=== PATIENT | male | born 1935 | race Caucasian/White ===

== ENCOUNTER 2018-04-02 08:23 | Inpatient (IN) ==
[2018-04-02] MEDS ORDERED: ONDANSETRON 4 MG/2 ML VIAL IV STA (09:58)
[2018-04-02] MEDS ORDERED: ASPIRIN 325 MG TABLET PO STA (09:58)
[2018-04-02 10:10] LABS: Basophils % 0.4 % (0.0-0.8); Eosinophils # 0.2 10*3/uL (0.0-0.87); Eosinophils % 2.5 % (0.00-10.9); Hematocrit 18.6 VOL% (42.0-52.0); Immature Granulocytes % 0.3 %; Immature Granulocytes Absolute 0.02 #; Lymphocytes # 1.5 10*3/uL (1.4-4.0); Lymphocytes % 21.8 % (21.2-54.2); Mean Corpuscular HGB Conc 30.1 GM/DL (32-36); Mean Corpuscular Hemoglobin 32 PG (27-34); Mean Corpuscular Volume 105.7 FL (87-102); Mean Platelet Volume 9.9 FL (9.6-12.0); Monocytes # 0.6 10*3/uL (0.11-0.8); Monocytes % 8.4 % (1.7-12.7); Neutrophils # 4.5 10*3/uL (1.4-7.4); Neutrophils % 66.6 % (38.7-73.9); Platelet Count 183 T/CUMM (130-400); Red Blood Count 1.76 MC/CUMM (3.8-5.5); Red Cell Distribution Width 16.2 % (9.3-17.3); White Blood Count 6.8 T/CUMM (4-12)
[2018-04-02 10:11] LABS: Partial Thromboplastin Time 34.2 SECS (0-40)
[2018-04-02 10:14] LABS: Hemoglobin 5.6 GM/DL (14.0-18.0)
[2018-04-02 10:17] LABS: PT Patient Result 53.1 SECS
[2018-04-02 10:28] LABS: Alanine Aminotransferase 17 U/L (16-61); Albumin 2.7 G/DL (3.4-5.0); Alkaline Phosphatase 78 U/L (45-117); Aspartate Amino Transferase 22 U/L (0-37); Blood Urea Nitrogen 37 MG/DL (7-18); Calcium 8.4 MG/DL (8.5-10.1); Glucose 117 MG/DL (74-106); Osmolality,Calculated 292.1 MOS/KG (273-304); Potassium 4.2 MMOL/L (3.5-5.1); Sodium 142 MMOL/L (136-145)
[2018-04-02 10:29] LABS: Troponin I 0.145 NG/ML (0.00-0.045)
[2018-04-02] MEDS ORDERED: MEPERIDINE 25 MG/1 ML VIAL ONE (10:51)
[2018-04-02] MEDS ORDERED: ACETAMINOPHEN 325 MG TABLET PO PRN (11:05)
[2018-04-02] MEDS ORDERED: DEXTROSE 50% 25 GM/50 ML VIAL IV PRN (11:05)
[2018-04-02] MEDS ORDERED: SODIUM CHLORIDE 0.9% 1,000 ML IV PRN ×2 (11:05→19:59)
[2018-04-02] MEDS ORDERED: ONDANSETRON 4 MG/2 ML VIAL IV PRN (11:05)
[2018-04-02] MEDS ORDERED: GLUCAGON 1 MG VIAL IM PRN (11:05)
[2018-04-02] MEDS ORDERED: MORPHINE 4 MG/1 ML VIAL IV PRN (11:05)
[2018-04-02] MEDS ORDERED: MEPERIDINE 25 MG/1 ML VIAL IV STA (11:37)
[2018-04-02 11:51] LABS: Basophils % 0.6 % (0.0-0.8); Eosinophils # 0.2 10*3/uL (0.0-0.87); Eosinophils % 2.2 % (0.00-10.9); Hematocrit 19.1 VOL% (42.0-52.0); Immature Granulocytes % 0.4 %; Immature Granulocytes Absolute 0.03 #; Lymphocytes # 1.5 10*3/uL (1.4-4.0); Lymphocytes % 21.7 % (21.2-54.2); Mean Corpuscular HGB Conc 30.4 GM/DL (32-36); Mean Corpuscular Hemoglobin 32 PG (27-34); Mean Corpuscular Volume 106.1 FL (87-102); Mean Platelet Volume 9.5 FL (9.6-12.0); Monocytes # 0.7 10*3/uL (0.11-0.8); Monocytes % 9.6 % (1.7-12.7); Neutrophils # 4.5 10*3/uL (1.4-7.4); Neutrophils % 65.5 % (38.7-73.9); Platelet Count 197 T/CUMM (130-400); Red Cell Distribution Width 16.4 % (9.3-17.3); White Blood Count 6.9 T/CUMM (4-12)
[2018-04-02 11:56] LABS: Hemoglobin 5.8 GM/DL (14.0-18.0)
[2018-04-02] MEDS: INSULIN REGULAR 100 UNIT/ML SUBCUT SCH ×3 (13:53→23:10)
[2018-04-02] MEDS: FUROSEMIDE 20 MG/2 ML VIAL IV PRN (15:23)
[2018-04-02 15:35] LABS: Apearance,Urine CLEAR (Clear); Bilirubin,Urine Negative (Negative); Blood, Urine Negative (Negative); Glucose,Urine (UA) Negative (Negative); Ketones,Urine Negative (Negative); Mucus,Urine Occasional /LPF (Occasional); Nitrite,Urine Negative (Negative); Protein,Urine Negative; RBC,Urine 1 /HPF (0-4); Squamous Epithelial Cell,Urine Occasional /HPF (0-10); Urine Color Yellow (Yellow); WBC,Urine 1 /HPF (0-6)
[2018-04-02] MEDS: FUROSEMIDE 40 MG TABLET PO SCH (15:57)
[2018-04-02] MEDS: SODIUM CHLORIDE 0.9% 1,000 ML IV SCH (16:03)
[2018-04-02 19:49] LABS: Hematocrit 21.3 VOL% (42.0-52.0); Hemoglobin 6.6 GM/DL (14.0-18.0)
[2018-04-02] MEDS: NIACIN ER 500 MG TABLET PO SCH (20:26)
[2018-04-02] MEDS: SIMVASTATIN 40 MG TABLET PO SCH (20:26)
[2018-04-02] MEDS: DOCUSATE SODIUM 100 MG CAPSULE PO SCH (20:26)
[2018-04-02] MEDS ORDERED: SKIN HEALING OINT (AQUAPHOR) 50 GM TUBE TOP SCH (20:30)
[2018-04-02 21:00] LABS: Troponin I 0.168 NG/ML (0.00-0.045)
[2018-04-03] MEDS: FUROSEMIDE 20 MG/2 ML VIAL IV PRN (01:27)
[2018-04-03] MEDS: SODIUM CHLORIDE 0.9% 1,000 ML IV SCH ×2 (01:44→18:22)
[2018-04-03] MEDS: INSULIN REGULAR 100 UNIT/ML SUBCUT SCH ×4 (05:36→23:03)
[2018-04-03 07:31] LABS: Basophils # 0.1 10*3/uL (0.0-0.2); Basophils % 0.7 % (0.0-0.8); Eosinophils # 0.2 10*3/uL (0.0-0.87); Eosinophils % 2.3 % (0.00-10.9); Hemoglobin 7.5 GM/DL (14.0-18.0); Immature Granulocytes % 0.4 %; Immature Granulocytes Absolute 0.03 #; Lymphocytes # 1.3 10*3/uL (1.4-4.0); Lymphocytes % 18.6 % (21.2-54.2); Mean Corpuscular HGB Conc 31.3 GM/DL (32-36); Mean Corpuscular Hemoglobin 31 PG (27-34); Mean Corpuscular Volume 100.4 FL (87-102); Mean Platelet Volume 9.6 FL (9.6-12.0); Monocytes # 0.7 10*3/uL (0.11-0.8); Neutrophils # 4.8 10*3/uL (1.4-7.4); Platelet Count 172 T/CUMM (130-400); Red Blood Count 2.39 MC/CUMM (3.8-5.5); Red Cell Distribution Width 16.7 % (9.3-17.3); White Blood Count 7.1 T/CUMM (4-12)
[2018-04-03 08:10] LABS: Albumin 2.5 G/DL (3.4-5.0); Bilirubin,Total 0.6 MG/DL (0.2-1.0); Calcium 7.9 MG/DL (8.5-10.1); Osmolality,Calculated 293.1 MOS/KG (273-304); Potassium 3.7 MMOL/L (3.5-5.1); Risk Ratio 2.18; Total Protein 5.4 G/DL (6.4-8.3); VLDL CHOLESTEROL 13.6 MG/DL
[2018-04-03] MEDS: POTASSIUM CHLORIDE 20 MEQ TABLET PO SCH (08:31)
[2018-04-03] MEDS: DOCUSATE SODIUM 100 MG CAPSULE PO SCH ×2 (08:31→20:09)
[2018-04-03] MEDS: PANTOPRAZOLE 40 MG VIAL IV SCH (08:31)
[2018-04-03] MEDS: FERROUS SULFATE 325 MG TABLET PO SCH (08:31)
[2018-04-03] MEDS: FUROSEMIDE 40 MG TABLET PO SCH ×2 (08:31→17:01)
[2018-04-03] MEDS: METOPROLOL SUCCINATE XL 100 MG TABLET PO SCH (08:32)
[2018-04-03] MEDS: ASPIRIN EC 81 MG TABLET PO SCH (08:32)
[2018-04-03 08:53] LABS: INR 1.1; PT Patient Result 12.4 SECS
[2018-04-03] MEDS ORDERED: TERAZOSIN 10 MG CAPSULE PO SCH (09:00)
[2018-04-03] MEDS ORDERED: LOSARTAN 50 MG TABLET PO SCH (09:00)
[2018-04-03] MEDS ORDERED: FUROSEMIDE 40 MG/4 ML VIAL IV ONE (10:00)
[2018-04-03] MEDS ORDERED: FUROSEMIDE 40 MG/4 ML VIAL ONE (17:24)
[2018-04-03] MEDS: POTASSIUM CHLORIDE 20 MEQ TABLET PO PRN (20:10)
[2018-04-03] MEDS: SIMVASTATIN 40 MG TABLET PO SCH (20:10)
[2018-04-03] MEDS: NIACIN ER 500 MG TABLET PO SCH (20:10)
[2018-04-03 22:20] LABS: Hematocrit 26.7 VOL% (42.0-52.0); Hemoglobin 8.5 GM/DL (14.0-18.0)
[2018-04-04] MEDS: INSULIN REGULAR 100 UNIT/ML SUBCUT SCH ×3 (05:30→17:39)
[2018-04-04 05:36] LABS: Basophils % 0.5 % (0.0-0.8); Eosinophils # 0.2 10*3/uL (0.0-0.87); Eosinophils % 2.6 % (0.00-10.9); Hematocrit 26.2 VOL% (42.0-52.0); Hemoglobin 8.2 GM/DL (14.0-18.0); Immature Granulocytes % 0.4 %; Immature Granulocytes Absolute 0.03 #; Lymphocytes # 1.3 10*3/uL (1.4-4.0); Lymphocytes % 17.8 % (21.2-54.2); Mean Corpuscular HGB Conc 31.3 GM/DL (32-36); Mean Corpuscular Hemoglobin 31 PG (27-34); Mean Corpuscular Volume 98.1 FL (87-102); Mean Platelet Volume 9.6 FL (9.6-12.0); Monocytes # 0.7 10*3/uL (0.11-0.8); Monocytes % 9.4 % (1.7-12.7); Neutrophils # 5.1 10*3/uL (1.4-7.4); Neutrophils % 69.3 % (38.7-73.9); Platelet Count 175 T/CUMM (130-400); Red Blood Count 2.67 MC/CUMM (3.8-5.5); Red Cell Distribution Width 17.6 % (9.3-17.3); White Blood Count 7.4 T/CUMM (4-12)
[2018-04-04 06:11] LABS: Albumin 2.3 G/DL (3.4-5.0); Bilirubin,Total 1.3 MG/DL (0.2-1.0); Osmolality,Calculated 294.1 MOS/KG (273-304); Potassium 3.9 MMOL/L (3.5-5.1); Total Protein 5.1 G/DL (6.4-8.3)
[2018-04-04] MEDS: POTASSIUM CHLORIDE 20 MEQ TABLET PO PRN (06:24)
[2018-04-04] MEDS: FUROSEMIDE 40 MG TABLET PO SCH ×2 (09:05→16:29)
[2018-04-04] MEDS: POTASSIUM CHLORIDE 20 MEQ TABLET PO SCH (09:05)
[2018-04-04] MEDS: ASPIRIN EC 81 MG TABLET PO SCH (09:05)
[2018-04-04] MEDS: METOPROLOL SUCCINATE XL 100 MG TABLET PO SCH (09:06)
[2018-04-04] MEDS: DOCUSATE SODIUM 100 MG CAPSULE PO SCH ×2 (09:06→20:18)
[2018-04-04] MEDS: PANTOPRAZOLE 40 MG VIAL IV SCH (09:06)
[2018-04-04] MEDS: FERROUS SULFATE 325 MG TABLET PO SCH (09:06)
[2018-04-04] MEDS: SODIUM CHLORIDE 0.9% 1,000 ML IV SCH (11:31)
[2018-04-04] MEDS ORDERED: POLYETHYLENE GLYCOL POWDER 17 GM PACK PO PRN (13:13)
[2018-04-04] MEDS ORDERED: SODIUM PHOSPHATE ENEMA 133 ML BOTTLE RECTAL ONE (15:18)
[2018-04-04 16:03] LABS: Hematocrit 27.2 VOL% (42.0-52.0); Hemoglobin 8.4 GM/DL (14.0-18.0)
[2018-04-04] MEDS ORDERED: SODIUM CHLORIDE 0.9% 1,000 ML IV PRN (18:32)
[2018-04-04 19:41] LABS: Troponin I 0.173 NG/ML (0.00-0.045)
[2018-04-04] MEDS: NIACIN ER 500 MG TABLET PO SCH (20:18)
[2018-04-04] MEDS: SIMVASTATIN 40 MG TABLET PO SCH (20:19)
[2018-04-05] MEDS: INSULIN REGULAR 100 UNIT/ML SUBCUT SCH ×5 (00:33→23:17)
[2018-04-05 06:30] LABS: Basophils % 0.5 % (0.0-0.8); Eosinophils # 0.3 10*3/uL (0.0-0.87); Eosinophils % 3.2 % (0.00-10.9); Hematocrit 25.4 VOL% (42.0-52.0); Hemoglobin 7.8 GM/DL (14.0-18.0); Immature Granulocytes % 0.4 %; Immature Granulocytes Absolute 0.03 #; Lymphocytes # 1.3 10*3/uL (1.4-4.0); Lymphocytes % 15.7 % (21.2-54.2); Mean Corpuscular HGB Conc 30.7 GM/DL (32-36); Mean Corpuscular Hemoglobin 30 PG (27-34); Mean Corpuscular Volume 98.8 FL (87-102); Mean Platelet Volume 9.7 FL (9.6-12.0); Monocytes # 0.8 10*3/uL (0.11-0.8); Monocytes % 10.1 % (1.7-12.7); Neutrophils # 5.8 10*3/uL (1.4-7.4); Neutrophils % 70.1 % (38.7-73.9); Platelet Count 174 T/CUMM (130-400); Red Blood Count 2.57 MC/CUMM (3.8-5.5); White Blood Count 8.2 T/CUMM (4-12)
[2018-04-05 06:56] LABS: Albumin 2.1 G/DL (3.4-5.0); Bilirubin,Total 1.3 MG/DL (0.2-1.0); Calcium 8.2 MG/DL (8.5-10.1); Osmolality,Calculated 299.6 MOS/KG (273-304); Potassium 3.9 MMOL/L (3.5-5.1)
[2018-04-05 07:03] LABS: Troponin I 0.182 NG/ML (0.00-0.045)
[2018-04-05] MEDS ORDERED: SODIUM CHLORIDE 0.9% 1,000 ML IV PRN (08:52)
[2018-04-05] MEDS: PANTOPRAZOLE 40 MG VIAL IV SCH (09:52)
[2018-04-05] MEDS ORDERED: ETOMIDATE 20 MG/10 ML VIAL IV ONE (10:00)
[2018-04-05] MEDS ORDERED: PROPOFOL 200 MG/20 ML VIAL IV ONE (10:00)
[2018-04-05] MEDS ORDERED: LIDOCAINE 2% 5 ML VIAL ONE (10:00)
[2018-04-05] MEDS: FUROSEMIDE 40 MG TABLET PO SCH ×2 (12:48→16:03)
[2018-04-05 15:29] LABS: Hematocrit 25.7 VOL% (42.0-52.0); Hemoglobin 8.1 GM/DL (14.0-18.0)
[2018-04-05] MEDS ORDERED: BISACODYL 5 MG TABLET PO ONE (16:00)
[2018-04-05 16:01] LABS: Troponin I 0.142 NG/ML (0.00-0.045)
[2018-04-05] MEDS: POTASSIUM CHLORIDE 20 MEQ TABLET PO SCH (16:03)
[2018-04-05] MEDS: FERROUS SULFATE 325 MG TABLET PO SCH (16:03)
[2018-04-05] MEDS: ASPIRIN EC 81 MG TABLET PO SCH (16:03)
[2018-04-05] MEDS: METOPROLOL SUCCINATE XL 100 MG TABLET PO SCH (16:03)
[2018-04-05] MEDS: CLOTRIMAZOLE 1% CREAM 15 GM TUBE TOP SCH (16:04)
[2018-04-05] MEDS: DOCUSATE SODIUM 100 MG CAPSULE PO SCH (16:05)
[2018-04-05] MEDS ORDERED: POLYETHYLENE GLYCOL POWDER 255 GM BOTTLE PO ONE (18:00)
[2018-04-05] MEDS: NIACIN ER 500 MG TABLET PO SCH (20:00)
[2018-04-05] MEDS: SIMVASTATIN 40 MG TABLET PO SCH (20:00)
[2018-04-06 05:37] LABS: Basophils % 0.5 % (0.0-0.8); Eosinophils # 0.4 10*3/uL (0.0-0.87); Eosinophils % 4.8 % (0.00-10.9); Hematocrit 23.4 VOL% (42.0-52.0); Hemoglobin 7.1 GM/DL (14.0-18.0); Immature Granulocytes % 0.3 %; Immature Granulocytes Absolute 0.02 #; Lymphocytes # 1.3 10*3/uL (1.4-4.0); Mean Corpuscular HGB Conc 30.3 GM/DL (32-36); Mean Corpuscular Hemoglobin 30 PG (27-34); Mean Platelet Volume 9.2 FL (9.6-12.0); Monocytes # 0.7 10*3/uL (0.11-0.8); Monocytes % 8.8 % (1.7-12.7); Neutrophils % 67.6 % (38.7-73.9); Platelet Count 191 T/CUMM (130-400); Red Blood Count 2.34 MC/CUMM (3.8-5.5); Red Cell Distribution Width 18.1 % (9.3-17.3); White Blood Count 7.4 T/CUMM (4-12)
[2018-04-06 05:56] LABS: Albumin 2.3 G/DL (3.4-5.0); Bilirubin,Total 1.3 MG/DL (0.2-1.0); Calcium 7.9 MG/DL (8.5-10.1); Osmolality,Calculated 293.7 MOS/KG (273-304); Potassium 3.8 MMOL/L (3.5-5.1); Total Protein 4.9 G/DL (6.4-8.3)
[2018-04-06] MEDS: INSULIN REGULAR 100 UNIT/ML SUBCUT SCH ×3 (05:58→18:48)
[2018-04-06] MEDS ORDERED: MAGNESIUM CITRATE 300 ML BOTTLE PO ONE (06:00)
[2018-04-06] MEDS: PANTOPRAZOLE 40 MG VIAL IV SCH (09:02)
[2018-04-06] MEDS: CLOTRIMAZOLE 1% CREAM 15 GM TUBE TOP SCH (09:15)
[2018-04-06] MEDS: FUROSEMIDE 40 MG TABLET PO SCH ×2 (10:10→18:48)
[2018-04-06] MEDS ORDERED: ETOMIDATE 20 MG/10 ML VIAL IV ONE (12:30)
[2018-04-06] MEDS ORDERED: LIDOCAINE 2% 5 ML VIAL ONE (12:30)
[2018-04-06] MEDS: FERROUS SULFATE 325 MG TABLET PO SCH (16:39)
[2018-04-06] MEDS: METOPROLOL SUCCINATE XL 100 MG TABLET PO SCH (16:39)
[2018-04-06] MEDS: POTASSIUM CHLORIDE 20 MEQ TABLET PO SCH (16:39)
[2018-04-06 19:30] LABS: Hematocrit 27.7 VOL% (42.0-52.0); Hemoglobin 8.6 GM/DL (14.0-18.0)
[2018-04-06] MEDS: NIACIN ER 500 MG TABLET PO SCH (22:00)
[2018-04-06] MEDS: SIMVASTATIN 40 MG TABLET PO SCH (22:00)
[2018-04-06 23:48] LABS: Hematocrit 26.7 VOL% (42.0-52.0); Hemoglobin 8.2 GM/DL (14.0-18.0)
[2018-04-07] MEDS: INSULIN REGULAR 100 UNIT/ML SUBCUT SCH ×4 (01:26→17:37)
[2018-04-07 08:09] LABS: Basophils # 0.1 10*3/uL (0.0-0.2); Basophils % 0.7 % (0.0-0.8); Eosinophils # 0.3 10*3/uL (0.0-0.87); Eosinophils % 3.9 % (0.00-10.9); Hematocrit 30.3 VOL% (42.0-52.0); Hemoglobin 9.5 GM/DL (14.0-18.0); Immature Granulocytes % 0.3 %; Immature Granulocytes Absolute 0.02 #; Lymphocytes # 1.4 10*3/uL (1.4-4.0); Lymphocytes % 21.6 % (21.2-54.2); Mean Corpuscular HGB Conc 31.4 GM/DL (32-36); Mean Corpuscular Hemoglobin 30 PG (27-34); Mean Corpuscular Volume 96.5 FL (87-102); Mean Platelet Volume 8.7 FL (9.6-12.0); Monocytes # 0.6 10*3/uL (0.11-0.8); Monocytes % 8.7 % (1.7-12.7); Neutrophils # 4.3 10*3/uL (1.4-7.4); Neutrophils % 64.8 % (38.7-73.9); Platelet Count 174 T/CUMM (130-400); Red Blood Count 3.14 MC/CUMM (3.8-5.5); Red Cell Distribution Width 17.8 % (9.3-17.3); White Blood Count 6.7 T/CUMM (4-12)
[2018-04-07] MEDS: ASPIRIN EC 81 MG TABLET PO SCH (08:27)
[2018-04-07] MEDS: POTASSIUM CHLORIDE 20 MEQ TABLET PO SCH (08:29)
[2018-04-07] MEDS: METOPROLOL SUCCINATE XL 100 MG TABLET PO SCH (08:29)
[2018-04-07] MEDS: PANTOPRAZOLE 40 MG VIAL IV SCH (08:29)
[2018-04-07] MEDS: FUROSEMIDE 40 MG TABLET PO SCH ×2 (08:29→15:46)
[2018-04-07] MEDS: CLOTRIMAZOLE 1% CREAM 15 GM TUBE TOP SCH ×2 (08:30→15:18)
[2018-04-07] MEDS: FERROUS SULFATE 325 MG TABLET PO SCH (08:30)
[2018-04-07 08:43] LABS: Albumin 2.3 G/DL (3.4-5.0); Calcium 7.8 MG/DL (8.5-10.1); Osmolality,Calculated 292.7 MOS/KG (273-304); Potassium 3.9 MMOL/L (3.5-5.1)
[2018-04-07 10:49] LABS: Hemoglobin 9.7 GM/DL (14.0-18.0)
[2018-04-07 15:54] LABS: Hematocrit 31.2 VOL% (42.0-52.0); Hemoglobin 9.6 GM/DL (14.0-18.0)
[2018-04-07 18:45] LABS: Hematocrit 29.8 VOL% (42.0-52.0); Hemoglobin 9.4 GM/DL (14.0-18.0)
[2018-04-07] MEDS: NIACIN ER 500 MG TABLET PO SCH (21:37)
[2018-04-07] MEDS: SIMVASTATIN 40 MG TABLET PO SCH (21:37)
[2018-04-08] MEDS: INSULIN REGULAR 100 UNIT/ML SUBCUT SCH ×4 (01:12→18:33)
[2018-04-08 04:45] LABS: Basophils # 0.1 10*3/uL (0.0-0.2); Basophils % 0.7 % (0.0-0.8); Eosinophils # 0.3 10*3/uL (0.0-0.87); Eosinophils % 4.5 % (0.00-10.9); Hematocrit 26.7 VOL% (42.0-52.0); Hemoglobin 8.2 GM/DL (14.0-18.0); Immature Granulocytes % 0.4 %; Immature Granulocytes Absolute 0.03 #; Lymphocytes # 1.5 10*3/uL (1.4-4.0); Lymphocytes % 20.2 % (21.2-54.2); Mean Corpuscular HGB Conc 30.7 GM/DL (32-36); Mean Corpuscular Hemoglobin 30 PG (27-34); Mean Corpuscular Volume 98.9 FL (87-102); Mean Platelet Volume 9.1 FL (9.6-12.0); Monocytes # 0.7 10*3/uL (0.11-0.8); Monocytes % 8.8 % (1.7-12.7); Neutrophils % 65.4 % (38.7-73.9); Platelet Count 183 T/CUMM (130-400); Red Cell Distribution Width 17.5 % (9.3-17.3); White Blood Count 7.6 T/CUMM (4-12)
[2018-04-08 05:00] LABS: Calcium 7.8 MG/DL (8.5-10.1); Osmolality,Calculated 292.8 MOS/KG (273-304)
[2018-04-08] MEDS: CLOTRIMAZOLE 1% CREAM 15 GM TUBE TOP SCH (09:08)
[2018-04-08] MEDS: FERROUS SULFATE 325 MG TABLET PO SCH (09:08)
[2018-04-08] MEDS: POTASSIUM CHLORIDE 20 MEQ TABLET PO SCH (09:08)
[2018-04-08] MEDS: FUROSEMIDE 40 MG TABLET PO SCH ×2 (09:08→16:00)
[2018-04-08] MEDS: METOPROLOL SUCCINATE XL 100 MG TABLET PO SCH (09:08)
[2018-04-08] MEDS: PANTOPRAZOLE 40 MG VIAL IV SCH (09:19)
[2018-04-08] MEDS ORDERED: AZITHROMYCIN INJ 500 MG in SODIUM CHLORIDE 0.9% 250 ML IV STA (12:18)
[2018-04-08] MEDS ORDERED: FAMOTIDINE 20 MG/2 ML VIAL IV ONE (12:19)
[2018-04-08 14:27] LABS: Hematocrit 31.3 VOL% (42.0-52.0); Hemoglobin 9.8 GM/DL (14.0-18.0)
[2018-04-08] MEDS ORDERED: PHENYLEPHRINE 1 MG/10 ML SYRINGE IV ONE (16:04)
[2018-04-08] MEDS ORDERED: PROPOFOL 200 MG/20 ML VIAL IV ONE (16:04)
[2018-04-08] MEDS ORDERED: ETOMIDATE 40 MG/20 ML VIAL IV ONE (16:04)
[2018-04-08] MEDS ORDERED: ATROPINE 1 MG/10 ML SYRINGE ONE (17:30)
[2018-04-08] MEDS ORDERED: GLUCAGON 1 MG VIAL ONE (17:52)
[2018-04-08 20:21] LABS: Hematocrit 28.6 VOL% (42.0-52.0)
[2018-04-08] MEDS: NIACIN ER 500 MG TABLET PO SCH (21:42)
[2018-04-08] MEDS: SIMVASTATIN 40 MG TABLET PO SCH (21:42)
[2018-04-09] MEDS: INSULIN REGULAR 100 UNIT/ML SUBCUT SCH ×4 (00:31→17:51)
[2018-04-09 04:00] LABS: Basophils % 0.5 % (0.0-0.8); Eosinophils # 0.3 10*3/uL (0.0-0.87); Eosinophils % 3.4 % (0.00-10.9); Hematocrit 27.9 VOL% (42.0-52.0); Hemoglobin 8.6 GM/DL (14.0-18.0); Immature Granulocytes % 0.4 %; Immature Granulocytes Absolute 0.03 #; Lymphocytes # 1.3 10*3/uL (1.4-4.0); Lymphocytes % 16.4 % (21.2-54.2); Mean Corpuscular HGB Conc 30.8 GM/DL (32-36); Mean Corpuscular Hemoglobin 30 PG (27-34); Mean Corpuscular Volume 97.6 FL (87-102); Mean Platelet Volume 9.2 FL (9.6-12.0); Monocytes # 0.6 10*3/uL (0.11-0.8); Monocytes % 8.1 % (1.7-12.7); Neutrophils # 5.5 10*3/uL (1.4-7.4); Neutrophils % 71.2 % (38.7-73.9); Platelet Count 163 T/CUMM (130-400); Red Blood Count 2.86 MC/CUMM (3.8-5.5); Red Cell Distribution Width 17.2 % (9.3-17.3); White Blood Count 7.7 T/CUMM (4-12)
[2018-04-09 04:17] LABS: Calcium 7.7 MG/DL (8.5-10.1); Osmolality,Calculated 290.7 MOS/KG (273-304); Potassium 3.8 MMOL/L (3.5-5.1)
[2018-04-09] MEDS: FERROUS SULFATE 325 MG TABLET PO SCH (08:27)
[2018-04-09] MEDS: METOPROLOL SUCCINATE XL 100 MG TABLET PO SCH (08:27)
[2018-04-09] MEDS: FUROSEMIDE 40 MG TABLET PO SCH ×2 (08:27→16:06)
[2018-04-09] MEDS: PANTOPRAZOLE 40 MG VIAL IV SCH (08:27)
[2018-04-09] MEDS: CLOTRIMAZOLE 1% CREAM 15 GM TUBE TOP SCH (08:27)
[2018-04-09] MEDS: POTASSIUM CHLORIDE 20 MEQ TABLET PO SCH (08:27)
[2018-04-09 09:03] LABS: Hematocrit 26.6 VOL% (42.0-52.0); Hemoglobin 8.4 GM/DL (14.0-18.0)
[2018-04-09 17:09] LABS: Hematocrit 33.9 VOL% (42.0-52.0); Hemoglobin 10.6 GM/DL (14.0-18.0)
[2018-04-09] MEDS: NIACIN ER 500 MG TABLET PO SCH (20:13)
[2018-04-09] MEDS: SIMVASTATIN 40 MG TABLET PO SCH (20:13)
[2018-04-09 23:52] LABS: Hematocrit 34.4 VOL% (42.0-52.0); Hemoglobin 10.7 GM/DL (14.0-18.0)
[2018-04-10] MEDS: INSULIN REGULAR 100 UNIT/ML SUBCUT SCH ×4 (00:12→18:13)
[2018-04-10 06:14] LABS: Basophils % 0.5 % (0.0-0.8); Eosinophils # 0.3 10*3/uL (0.0-0.87); Eosinophils % 4.2 % (0.00-10.9); Hematocrit 32.2 VOL% (42.0-52.0); Hemoglobin 10.1 GM/DL (14.0-18.0); Immature Granulocytes % 0.3 %; Immature Granulocytes Absolute 0.02 #; Lymphocytes # 1.9 10*3/uL (1.4-4.0); Lymphocytes % 25.1 % (21.2-54.2); Mean Corpuscular HGB Conc 31.4 GM/DL (32-36); Mean Corpuscular Hemoglobin 30 PG (27-34); Mean Corpuscular Volume 96.1 FL (87-102); Mean Platelet Volume 9.5 FL (9.6-12.0); Monocytes # 0.6 10*3/uL (0.11-0.8); Monocytes % 8.5 % (1.7-12.7); Neutrophils # 4.5 10*3/uL (1.4-7.4); Neutrophils % 61.4 % (38.7-73.9); Platelet Count 180 T/CUMM (130-400); Red Blood Count 3.35 MC/CUMM (3.8-5.5); Red Cell Distribution Width 17.2 % (9.3-17.3); White Blood Count 7.4 T/CUMM (4-12)
[2018-04-10 06:34] LABS: Calcium 7.9 MG/DL (8.5-10.1); Osmolality,Calculated 283.1 MOS/KG (273-304); Potassium 3.5 MMOL/L (3.5-5.1)
[2018-04-10] MEDS: METOPROLOL SUCCINATE XL 100 MG TABLET PO SCH (08:35)
[2018-04-10] MEDS: FUROSEMIDE 40 MG TABLET PO SCH ×2 (08:35→17:14)
[2018-04-10] MEDS: FERROUS SULFATE 325 MG TABLET PO SCH (08:35)
[2018-04-10] MEDS: PANTOPRAZOLE 40 MG VIAL IV SCH (08:35)
[2018-04-10] MEDS: POTASSIUM CHLORIDE 20 MEQ TABLET PO SCH (08:36)
[2018-04-10] MEDS: CLOTRIMAZOLE 1% CREAM 15 GM TUBE TOP SCH (17:15)
[2018-04-10] MEDS: NIACIN ER 500 MG TABLET PO SCH (20:42)
[2018-04-10] MEDS: SIMVASTATIN 40 MG TABLET PO SCH (20:42)
[2018-04-10] MEDS: DESITIN 4OZ/NYSTATIN 15 GRAM MIXTURE PASTE TOP SCH (20:42)
[2018-04-11] MEDS: INSULIN REGULAR 100 UNIT/ML SUBCUT SCH ×4 (01:36→18:30)
[2018-04-11] MEDS: DESITIN 4OZ/NYSTATIN 15 GRAM MIXTURE PASTE TOP SCH ×2 (08:37→20:37)
[2018-04-11] MEDS: FUROSEMIDE 40 MG TABLET PO SCH ×2 (08:37→16:05)
[2018-04-11] MEDS: POTASSIUM CHLORIDE 20 MEQ TABLET PO SCH (08:37)
[2018-04-11] MEDS: METOPROLOL SUCCINATE XL 100 MG TABLET PO SCH (08:37)
[2018-04-11] MEDS: FERROUS SULFATE 325 MG TABLET PO SCH (08:37)
[2018-04-11] MEDS: PANTOPRAZOLE 40 MG VIAL IV SCH (08:37)
[2018-04-11 10:52] LABS: Basophils % 0.7 % (0.0-0.8); Eosinophils # 0.3 10*3/uL (0.0-0.87); Eosinophils % 4.5 % (0.00-10.9); Hemoglobin 10.3 GM/DL (14.0-18.0); Immature Granulocytes % 0.2 %; Immature Granulocytes Absolute 0.01 #; Lymphocytes # 1.3 10*3/uL (1.4-4.0); Lymphocytes % 23.1 % (21.2-54.2); Mean Corpuscular HGB Conc 32.2 GM/DL (32-36); Mean Corpuscular Hemoglobin 31 PG (27-34); Mean Corpuscular Volume 95.8 FL (87-102); Mean Platelet Volume 9.3 FL (9.6-12.0); Monocytes # 0.6 10*3/uL (0.11-0.8); Monocytes % 10.4 % (1.7-12.7); Neutrophils # 3.5 10*3/uL (1.4-7.4); Neutrophils % 61.1 % (38.7-73.9); Platelet Count 195 T/CUMM (130-400); Red Blood Count 3.34 MC/CUMM (3.8-5.5); Red Cell Distribution Width 17.2 % (9.3-17.3); White Blood Count 5.8 T/CUMM (4-12)
[2018-04-11 11:07] LABS: Calcium 7.9 MG/DL (8.5-10.1); Osmolality,Calculated 278.5 MOS/KG (273-304); Potassium 3.7 MMOL/L (3.5-5.1)
[2018-04-11] MEDS: CLOTRIMAZOLE 1% CREAM 15 GM TUBE TOP SCH (16:49)
[2018-04-11] MEDS: NIACIN ER 500 MG TABLET PO SCH (20:36)
[2018-04-11] MEDS: SIMVASTATIN 40 MG TABLET PO SCH (20:36)
[2018-04-12] MEDS: INSULIN REGULAR 100 UNIT/ML SUBCUT SCH ×4 (01:06→17:18)
[2018-04-12 06:12] LABS: Basophils % 0.5 % (0.0-0.8); Eosinophils # 0.2 10*3/uL (0.0-0.87); Eosinophils % 3.4 % (0.00-10.9); Hematocrit 32.1 VOL% (42.0-52.0); Hemoglobin 10.1 GM/DL (14.0-18.0); Immature Granulocytes % 0.4 %; Immature Granulocytes Absolute 0.02 #; Lymphocytes # 1.5 10*3/uL (1.4-4.0); Lymphocytes % 26.2 % (21.2-54.2); Mean Corpuscular HGB Conc 31.5 GM/DL (32-36); Mean Corpuscular Hemoglobin 30 PG (27-34); Mean Corpuscular Volume 95.3 FL (87-102); Mean Platelet Volume 9.1 FL (9.6-12.0); Monocytes # 0.7 10*3/uL (0.11-0.8); Monocytes % 12.3 % (1.7-12.7); Neutrophils # 3.2 10*3/uL (1.4-7.4); Neutrophils % 57.2 % (38.7-73.9); Platelet Count 194 T/CUMM (130-400); Red Blood Count 3.37 MC/CUMM (3.8-5.5); Red Cell Distribution Width 17.4 % (9.3-17.3); White Blood Count 5.5 T/CUMM (4-12)
[2018-04-12 06:31] LABS: Calcium 8.2 MG/DL (8.5-10.1); Osmolality,Calculated 279.4 MOS/KG (273-304); Potassium 3.7 MMOL/L (3.5-5.1)
[2018-04-12] MEDS: FERROUS SULFATE 325 MG TABLET PO SCH (08:17)
[2018-04-12] MEDS: METOPROLOL SUCCINATE XL 100 MG TABLET PO SCH (08:18)
[2018-04-12] MEDS: POTASSIUM CHLORIDE 20 MEQ TABLET PO SCH (08:18)
[2018-04-12] MEDS: CLOTRIMAZOLE 1% CREAM 15 GM TUBE TOP SCH (08:18)
[2018-04-12] MEDS: FUROSEMIDE 40 MG TABLET PO SCH ×2 (08:18→15:51)
[2018-04-12] MEDS: PANTOPRAZOLE 40 MG VIAL IV SCH (08:18)
[2018-04-12] MEDS: DESITIN 4OZ/NYSTATIN 15 GRAM MIXTURE PASTE TOP SCH ×2 (08:19→21:23)
[2018-04-12] MEDS: SIMVASTATIN 40 MG TABLET PO SCH (21:22)
[2018-04-12] MEDS: NIACIN ER 500 MG TABLET PO SCH (21:22)
[2018-04-12] MEDS: HYDROCORTISONE 25 MG SUPP RECTAL SCH (21:23)
[2018-04-13] MEDS: INSULIN REGULAR 100 UNIT/ML SUBCUT SCH ×3 (00:45→12:00)
[2018-04-13 06:13] LABS: Basophils % 0.7 % (0.0-0.8); Eosinophils # 0.2 10*3/uL (0.0-0.87); Eosinophils % 3.7 % (0.00-10.9); Hematocrit 31.9 VOL% (42.0-52.0); Immature Granulocytes % 0.3 %; Immature Granulocytes Absolute 0.02 #; Lymphocytes # 1.5 10*3/uL (1.4-4.0); Mean Corpuscular HGB Conc 31.3 GM/DL (32-36); Mean Corpuscular Hemoglobin 31 PG (27-34); Mean Corpuscular Volume 97.3 FL (87-102); Mean Platelet Volume 9.4 FL (9.6-12.0); Monocytes # 0.7 10*3/uL (0.11-0.8); Monocytes % 11.7 % (1.7-12.7); Neutrophils # 3.3 10*3/uL (1.4-7.4); Neutrophils % 57.6 % (38.7-73.9); Platelet Count 199 T/CUMM (130-400); Red Blood Count 3.28 MC/CUMM (3.8-5.5); Red Cell Distribution Width 16.9 % (9.3-17.3); White Blood Count 5.7 T/CUMM (4-12)
[2018-04-13 06:36] LABS: Osmolality,Calculated 281.3 MOS/KG (273-304); Potassium 3.9 MMOL/L (3.5-5.1)
[2018-04-13] MEDS ORDERED: PANTOPRAZOLE 40 MG TABLET PO SCH (09:00)
[2018-04-13] MEDS: PANTOPRAZOLE 40 MG VIAL IV SCH (09:40)
[2018-04-13] MEDS: FUROSEMIDE 40 MG TABLET PO SCH (09:40)
[2018-04-13] MEDS: METOPROLOL SUCCINATE XL 100 MG TABLET PO SCH (09:41)
[2018-04-13] MEDS: HYDROCORTISONE 25 MG SUPP RECTAL SCH (09:41)
[2018-04-13] MEDS: FERROUS SULFATE 325 MG TABLET PO SCH (09:41)
[2018-04-13] MEDS: POTASSIUM CHLORIDE 20 MEQ TABLET PO SCH (09:41)
[2018-04-13] MEDS: DESITIN 4OZ/NYSTATIN 15 GRAM MIXTURE PASTE TOP SCH (09:47)
[2018-04-13] MEDS ORDERED: SKIN HEALING OINT (AQUAPHOR) 50 GM TUBE TOP PRN (14:51)
[2018-04-13 15:57] VITALS: BP 141/59
== END 2018-04-13 18:30 | disposition home or self-care (01) | DRG 813 ==
LOC: N.ED 08:23 → N.EDINP 10:52 → N.ICU 11:52 → N.4E 04-06 11:08 → N.CC 04-06 14:30 → N.5E 04-09 21:28
PROVIDERS: ADMIT Internal Medicine; ATTEND Internal Medicine

== ENCOUNTER 2018-05-09 03:22 | Inpatient (IN) ==
[2018-05-09 04:30] LABS: Basophils # 0.1 10*3/uL (0.0-0.2); Basophils % 0.4 % (0.0-0.8); Eosinophils # 0.2 10*3/uL (0.0-0.87); Eosinophils % 1.5 % (0.00-10.9); Hematocrit 45.3 VOL% (42.0-52.0); Hemoglobin 14.5 GM/DL (14.0-18.0); Immature Granulocytes % 0.3 %; Immature Granulocytes Absolute 0.03 #; Lymphocytes # 1.4 10*3/uL (1.4-4.0); Mean Corpuscular Hemoglobin 31 PG (27-34); Mean Corpuscular Volume 97.8 FL (87-102); Mean Platelet Volume 9.3 FL (9.6-12.0); Monocytes # 0.9 10*3/uL (0.11-0.8); Monocytes % 7.8 % (1.7-12.7); Neutrophils # 8.8 10*3/uL (1.4-7.4); Platelet Count 200 T/CUMM (130-400); Red Blood Count 4.63 MC/CUMM (3.8-5.5); Red Cell Distribution Width 14.9 % (9.3-17.3); White Blood Count 11.3 T/CUMM (4-12)
[2018-05-09 04:35] LABS: Apearance,Urine CLOUDY (Clear); Bilirubin,Urine Negative (Negative); Blood, Urine Moderate mg/dL (Negative); Glucose,Urine (UA) Negative (Negative); Ketones,Urine Negative (Negative); Mucus,Urine Occasional /LPF (Occasional); Nitrite,Urine Positive (Negative); Protein,Urine 100 MG/DL; RBC,Urine 243 /HPF (0-4); Sperm,Urine Occasional /HPF (Negative); Urine Color Amber (Yellow); Urine Specific Gravity 1.017 (1.001-1.035); Urine Urobilinogen < 2.0 EU/DL (0.2-1.0); WBC,Urine 770 /HPF (0-6)
[2018-05-09 04:49] LABS: Albumin 3.3 G/DL (3.4-5.0); Calcium 9.4 MG/DL (8.5-10.1); Osmolality,Calculated 278.8 MOS/KG (273-304); Total Protein 7.2 G/DL (6.4-8.3)
[2018-05-09] MEDS ORDERED: cefTRIAXone 250 MG VIAL IV STA (04:58)
[2018-05-09 05:13] LABS: Platelet Estimate Adequate
[2018-05-09 05:14] LABS: Polychromasia Few
[2018-05-09] MEDS ORDERED: SODIUM CHLORIDE 0.9% 100 ML IV ONE (05:17)
[2018-05-09] MEDS ORDERED: ONDANSETRON 4 MG/2 ML VIAL ONE (05:23)
[2018-05-09] MEDS ORDERED: MORPHINE 4 MG/1 ML VIAL ONE (05:23)
[2018-05-09] MEDS ORDERED: MORPHINE 4 MG/1 ML VIAL IV STA (05:32)
[2018-05-09] MEDS ORDERED: ONDANSETRON 4 MG/2 ML VIAL IV ONE (05:32)
[2018-05-09] MEDS ORDERED: ACETAMINOPHEN 325 MG TABLET PO PRN (09:13)
[2018-05-09] MEDS ORDERED: ONDANSETRON 4 MG/2 ML VIAL IV PRN (09:13)
[2018-05-09] MEDS: SODIUM CHLORIDE 0.9% 1,000 ML IV SCH ×2 (10:03→18:44)
[2018-05-09] MEDS: ENOXAPARIN 40 MG/0.4 ML SYRINGE SUBCUT SCH ×2 (10:03→10:12)
[2018-05-09] MEDS: cefTRIAXone 1,000 MG in SYRINGE 1 EACH IV SCH ×2 (10:22→21:14)
[2018-05-09] MEDS ORDERED: INFLUENZA VIRUS VACCINE 0.5 ML SYRINGE IM ONE (13:43)
[2018-05-09] MEDS: FUROSEMIDE 40 MG TABLET PO SCH (16:57)
[2018-05-09] MEDS: DOCUSATE SODIUM 100 MG CAPSULE PO SCH (21:14)
[2018-05-10] MEDS: SODIUM CHLORIDE 0.9% 1,000 ML IV SCH ×3 (02:26→21:21)
[2018-05-10] MEDS ORDERED: PANTOPRAZOLE 40 MG TABLET PO SCH (09:00)
[2018-05-10] MEDS: METOPROLOL SUCCINATE XL 100 MG TABLET PO SCH (09:46)
[2018-05-10] MEDS: cefTRIAXone 1,000 MG in SYRINGE 1 EACH IV SCH (09:47)
[2018-05-10] MEDS: POTASSIUM CHLORIDE 20 MEQ TABLET PO SCH (09:47)
[2018-05-10] MEDS: DOCUSATE SODIUM 100 MG CAPSULE PO SCH ×2 (09:47→21:21)
[2018-05-10] MEDS: FERROUS SULFATE 325 MG TABLET PO SCH (09:47)
[2018-05-10] MEDS: FUROSEMIDE 40 MG TABLET PO SCH ×2 (09:47→17:36)
[2018-05-10] MEDS: PANTOPRAZOLE 40 MG TABLET PO SCH (09:49)
[2018-05-10] MEDS ORDERED: ALBUTEROL/IPRATROPIUM 3 ML NEB RESP TX PRN (11:37)
[2018-05-11] MEDS: SODIUM CHLORIDE 0.9% 1,000 ML IV SCH ×4 (07:52→19:37)
[2018-05-11] MEDS: METOPROLOL SUCCINATE XL 100 MG TABLET PO SCH (09:51)
[2018-05-11] MEDS: PANTOPRAZOLE 40 MG TABLET PO SCH (09:52)
[2018-05-11] MEDS: POTASSIUM CHLORIDE 20 MEQ TABLET PO SCH (09:52)
[2018-05-11] MEDS: DOCUSATE SODIUM 100 MG CAPSULE PO SCH ×2 (09:52→20:34)
[2018-05-11] MEDS: FUROSEMIDE 40 MG TABLET PO SCH ×2 (09:52→16:18)
[2018-05-11] MEDS: FERROUS SULFATE 325 MG TABLET PO SCH (09:52)
[2018-05-11] MEDS: cefTRIAXone 2,000 MG in SYRINGE 1 EACH IV SCH (10:57)
[2018-05-12] MEDS: SODIUM CHLORIDE 0.9% 1,000 ML IV SCH ×2 (03:51→12:28)
[2018-05-12 07:41] LABS: Basophils % 0.3 % (0.0-0.8); Eosinophils # 0.2 10*3/uL (0.0-0.87); Eosinophils % 3.3 % (0.00-10.9); Hematocrit 37.1 VOL% (42.0-52.0); Immature Granulocytes % 0.3 %; Immature Granulocytes Absolute 0.02 #; Lymphocytes % 14.7 % (21.2-54.2); Mean Corpuscular HGB Conc 31.3 GM/DL (32-36); Mean Corpuscular Hemoglobin 31 PG (27-34); Mean Corpuscular Volume 98.7 FL (87-102); Mean Platelet Volume 9.2 FL (9.6-12.0); Monocytes # 0.6 10*3/uL (0.11-0.8); Monocytes % 9.2 % (1.7-12.7); Neutrophils % 72.2 % (38.7-73.9); Platelet Count 169 T/CUMM (130-400); Red Blood Count 3.76 MC/CUMM (3.8-5.5)
[2018-05-12 07:42] LABS: Hemoglobin 11.6 GM/DL (14.0-18.0)
[2018-05-12 08:34] LABS: Calcium 8.6 MG/DL (8.5-10.1); Osmolality,Calculated 276.5 MOS/KG (273-304); Potassium 3.8 MMOL/L (3.5-5.1)
[2018-05-12] MEDS: cefTRIAXone 2,000 MG in SYRINGE 1 EACH IV SCH (09:31)
[2018-05-12] MEDS: DOCUSATE SODIUM 100 MG CAPSULE PO SCH (09:32)
[2018-05-12] MEDS: FERROUS SULFATE 325 MG TABLET PO SCH (09:32)
[2018-05-12] MEDS: POTASSIUM CHLORIDE 20 MEQ TABLET PO SCH (09:32)
[2018-05-12] MEDS: PANTOPRAZOLE 40 MG TABLET PO SCH (09:32)
[2018-05-12] MEDS: METOPROLOL SUCCINATE XL 100 MG TABLET PO SCH (09:32)
[2018-05-12] MEDS: FUROSEMIDE 40 MG TABLET PO SCH (09:32)
[2018-05-12 12:27] VITALS: BP 132/61
== END 2018-05-12 15:50 | disposition home or self-care (01) | DRG 728 ==
LOC: N.ED 03:22 → N.EDINP 09:13 → N.5E 13:44
PROVIDERS: ADMIT Internal Medicine; ATTEND Internal Medicine

== ENCOUNTER 2020-04-06 10:39 | Inpatient (IN) ==
[2020-04-06 11:38] LABS: Basophils % 0.5 % (0.0-0.8); Eosinophils # 0.1 10*3/uL (0.0-0.87); Eosinophils % 1.9 % (0.00-10.9); Hematocrit 47.2 VOL% (42.0-52.0); Hemoglobin 15.1 GM/DL (14.0-18.0); Immature Granulocytes % 0.3 %; Immature Granulocytes Absolute 0.02 #; Lymphocytes # 1.2 10*3/uL (1.4-4.0); Lymphocytes % 15.9 % (21.2-54.2); Mean Corpuscular Volume 100.4 FL (87-102); Mean Platelet Volume 9.1 FL (9.6-12.0); Monocytes % 8.2 % (1.7-12.7); Neutrophils % 73.2 % (38.7-73.9); Platelet Count 220 T/CUMM (130-400); White Blood Count 7.4 T/CUMM (4-12)
[2020-04-06 11:51] LABS: PT Patient Result 11.1 SECS (9.8-11.9); Partial Thromboplastin Time 28.2 SECS (23.9-33.8)
[2020-04-06 12:05] LABS: Albumin 3.4 G/DL (3.4-5.0); Bilirubin,Total 1.1 MG/DL (0.2-1.0); Calcium 9.1 MG/DL (8.5-10.1); Potassium 4.3 MMOL/L (3.5-5.1); Total Protein 7.8 G/DL (6.4-8.3)
[2020-04-06] MEDS ORDERED: ONDANSETRON 4 MG/2 ML VIAL IV PRN (14:37)
[2020-04-06] MEDS: SODIUM CHLORIDE 0.45% 1,000 ML IV SCH (17:44)
[2020-04-06] MEDS: HEPARIN DRIP 25,000 UNITS/500 ML PREMIX IV SCH (17:45)
[2020-04-06 19:07] LABS: Bacteria,Urine Moderate /HPF (Few); Bilirubin,Urine Negative (Negative); Blood, Urine Negative (Negative); Glucose,Urine (UA) Negative (Negative); Ketones,Urine Negative (Negative); Mucus,Urine Occasional /LPF (Occasional); Nitrite,Urine Positive (Negative); Protein,Urine Negative; RBC,Urine 3 /HPF (0-4); Renal Epithelial Cells,Urine Occasional /HPF (<1); Urine Appearance Slightly Hazy (Clear); Urine Color Yellow (Yellow); Urine Specific Gravity 1.044 (1.001-1.035); Urine Urobilinogen < 2.0 EU/DL (0.2-1.0); WBC,Urine 112 /HPF (0-6)
[2020-04-06] MEDS: SIMVASTATIN 20 MG TABLET PO SCH (20:16)
[2020-04-07 07:07] LABS: Calcium 9.1 MG/DL (8.5-10.1); Osmolality,Calculated 270.1 MOS/KG (273-304); Potassium 3.8 MMOL/L (3.5-5.1)
[2020-04-07] MEDS ORDERED: METOPROLOL SUCCINATE XL 50 MG TABLET PO SCH (09:00)
[2020-04-07] MEDS: FUROSEMIDE 40 MG/4 ML VIAL IV SCH (09:07)
[2020-04-07] MEDS: POTASSIUM CHLORIDE 20 MEQ TABLET PO SCH (09:07)
[2020-04-07] MEDS: ASPIRIN CHEW 81 MG TABLET PO SCH (09:07)
[2020-04-07] MEDS: cefTRIAXone 1,000 MG in SYRINGE 1 EACH IV SCH (11:11)
[2020-04-07] MEDS: SODIUM CHLORIDE 0.45% 1,000 ML IV SCH (13:58)
[2020-04-07] MEDS: HEPARIN DRIP 25,000 UNITS/500 ML PREMIX IV SCH (16:55)
[2020-04-07] MEDS: SIMVASTATIN 20 MG TABLET PO SCH (20:31)
[2020-04-08 05:41] LABS: Basophils # 0.1 10*3/uL (0.0-0.2); Basophils % 0.8 % (0.0-0.8); Eosinophils # 0.2 10*3/uL (0.0-0.87); Eosinophils % 2.3 % (0.00-10.9); Hematocrit 43.8 VOL% (42.0-52.0); Immature Granulocytes % 0.2 %; Immature Granulocytes Absolute 0.01 #; Lymphocytes # 1.5 10*3/uL (1.4-4.0); Lymphocytes % 22.3 % (21.2-54.2); Mean Corpuscular HGB Conc 34.2 GM/DL (32-36); Mean Corpuscular Volume 95.2 FL (87-102); Mean Platelet Volume 9.1 FL (9.6-12.0); Monocytes % 11.1 % (1.7-12.7); Neutrophils % 63.3 % (38.7-73.9); Platelet Count 188 T/CUMM (130-400); Red Cell Distribution Width 12.9 % (9.3-17.3); White Blood Count 6.5 T/CUMM (4-12)
[2020-04-08 06:00] LABS: Calcium 8.8 MG/DL (8.5-10.1); Potassium 3.6 MMOL/L (3.5-5.1)
[2020-04-08] MEDS: FUROSEMIDE 40 MG/4 ML VIAL IV SCH (08:26)
[2020-04-08] MEDS: ASPIRIN CHEW 81 MG TABLET PO SCH (08:27)
[2020-04-08] MEDS: METOPROLOL SUCCINATE XL 25 MG TABLET PO SCH (08:27)
[2020-04-08] MEDS: DOCUSATE SODIUM 100 MG/10 ML UDCUP PO SCH (08:27)
[2020-04-08] MEDS: POTASSIUM CHLORIDE 20 MEQ TABLET PO SCH (08:27)
[2020-04-08] MEDS ORDERED: DEXTROMETHORPHAN ER 6 MG/ML 90 ML/BOTTLE PO PRN (09:11)
[2020-04-08] MEDS: cefTRIAXone 1,000 MG in SYRINGE 1 EACH IV SCH (09:57)
[2020-04-08] MEDS: SODIUM CHLORIDE 0.45% 1,000 ML IV SCH (09:57)
[2020-04-08] MEDS: HEPARIN DRIP 25,000 UNITS/500 ML PREMIX IV SCH (15:54)
[2020-04-08] MEDS: SIMVASTATIN 20 MG TABLET PO SCH (20:20)
[2020-04-09] MEDS: METOPROLOL SUCCINATE XL 25 MG TABLET PO SCH (08:26)
[2020-04-09] MEDS: DOCUSATE SODIUM 100 MG/10 ML UDCUP PO SCH (08:26)
[2020-04-09] MEDS: POTASSIUM CHLORIDE 20 MEQ TABLET PO SCH (08:26)
[2020-04-09] MEDS: ASPIRIN CHEW 81 MG TABLET PO SCH (08:26)
[2020-04-09] MEDS: APIXABAN 2.5 MG TABLET PO SCH ×2 (10:00→20:18)
[2020-04-09] MEDS: cefTRIAXone 1,000 MG in SYRINGE 1 EACH IV SCH (10:01)
[2020-04-09] MEDS: FUROSEMIDE 40 MG/4 ML VIAL IV SCH (10:01)
[2020-04-09] MEDS: SIMVASTATIN 20 MG TABLET PO SCH (20:18)
[2020-04-10] MEDS: SODIUM CHLORIDE 0.45% 1,000 ML IV SCH (04:35)
[2020-04-10 05:38] LABS: Basophils % 0.5 % (0.0-0.8); Eosinophils # 0.2 10*3/uL (0.0-0.87); Eosinophils % 3.6 % (0.00-10.9); Hematocrit 42.9 VOL% (42.0-52.0); Hemoglobin 14.2 GM/DL (14.0-18.0); Immature Granulocytes % 0.2 %; Immature Granulocytes Absolute 0.01 #; Lymphocytes # 1.3 10*3/uL (1.4-4.0); Mean Corpuscular HGB Conc 33.1 GM/DL (32-36); Mean Corpuscular Volume 98.6 FL (87-102); Mean Platelet Volume 9.4 FL (9.6-12.0); Monocytes % 11.3 % (1.7-12.7); Neutrophils % 60.4 % (38.7-73.9); Platelet Count 176 T/CUMM (130-400); Red Blood Count 4.35 MC/CUMM (3.8-5.5); White Blood Count 5.5 T/CUMM (4-12)
[2020-04-10 06:05] LABS: Albumin 2.7 G/DL (3.4-5.0); Bilirubin,Total 0.9 MG/DL (0.2-1.0); Calcium 9.1 MG/DL (8.5-10.1); Osmolality,Calculated 269.1 MOS/KG (273-304); Potassium 3.8 MMOL/L (3.5-5.1); Total Protein 6.7 G/DL (6.4-8.3)
[2020-04-10] MEDS: DOCUSATE SODIUM 100 MG/10 ML UDCUP PO SCH (08:54)
[2020-04-10] MEDS: POTASSIUM CHLORIDE 20 MEQ TABLET PO SCH (08:54)
[2020-04-10] MEDS: APIXABAN 2.5 MG TABLET PO SCH (08:55)
[2020-04-10] MEDS: METOPROLOL SUCCINATE XL 25 MG TABLET PO SCH (08:55)
[2020-04-10] MEDS: cefTRIAXone 1,000 MG in SYRINGE 1 EACH IV SCH (10:42)
[2020-04-10] MEDS: FUROSEMIDE 40 MG/4 ML VIAL IV SCH (10:46)
[2020-04-10 12:14] VITALS: BP 137/57
== END 2020-04-10 12:50 | disposition home or self-care (01) | DRG 64 ==
LOC: N.ED 10:39 → N.EDINP 14:37 → N.4E 16:02
PROVIDERS: ADMIT Internal Medicine; ATTEND Internal Medicine

== ENCOUNTER 2020-04-24 04:07 | Observation (INO) ==
[2020-04-24 04:58] LABS: Basophils # 0.1 10*3/uL (0.0-0.2); Basophils % 0.7 % (0.0-0.8); Eosinophils # 0.3 10*3/uL (0.0-0.87); Eosinophils % 3.6 % (0.00-10.9); Hematocrit 46.6 VOL% (42.0-52.0); Hemoglobin 15.1 GM/DL (14.0-18.0); Immature Granulocytes % 0.3 %; Immature Granulocytes Absolute 0.02 #; Lymphocytes # 1.7 10*3/uL (1.4-4.0); Lymphocytes % 24.4 % (21.2-54.2); Mean Corpuscular HGB Conc 32.4 GM/DL (32-36); Mean Corpuscular Volume 100.2 FL (87-102); Mean Platelet Volume 9.4 FL (9.6-12.0); Monocytes % 9.2 % (1.7-12.7); Neutrophils % 61.8 % (38.7-73.9); Platelet Count 208 T/CUMM (130-400); Red Blood Count 4.65 MC/CUMM (3.8-5.5); Red Cell Distribution Width 12.7 % (9.3-17.3)
[2020-04-24 05:10] LABS: INR 1.1; PT Patient Result 11.4 SECS (9.8-11.9)
[2020-04-24 05:17] LABS: Albumin 3.1 G/DL (3.4-5.0); Bilirubin,Total 0.8 MG/DL (0.2-1.0); Calcium 9.3 MG/DL (8.5-10.1); Osmolality,Calculated 275.1 MOS/KG (273-304); Potassium 3.9 MMOL/L (3.5-5.1); Total Protein 7.4 G/DL (6.4-8.3)
[2020-04-24] MEDS ORDERED: methylPREDNISolone SOD SUC 125 MG/2 ML VIAL IV STA (05:25)
[2020-04-24] MEDS ORDERED: methylPREDNISolone SOD SUC 125 MG/2 ML VIAL ONE (05:26)
[2020-04-24 06:00] LABS: Troponin I 0.021 NG/ML (0.00-0.045)
[2020-04-24 07:06] LABS: Bilirubin,Urine Negative (Negative); Blood, Urine Small mg/dL (Negative); Glucose,Urine (UA) Negative (Negative); Ketones,Urine 5 mg/dL (Negative); Mucus,Urine Occasional /LPF (Occasional); Nitrite,Urine Negative (Negative); Protein,Urine Negative; RBC,Urine 11 /HPF (0-4); Urine Appearance CLEAR (Clear); Urine Color Yellow (Yellow); Urine Specific Gravity 1.035 (1.001-1.035); Urine Urobilinogen < 2.0 EU/DL (0.2-1.0); WBC,Urine <1 /HPF (0-6)
[2020-04-24] MEDS ORDERED: ONDANSETRON 4 MG/2 ML VIAL IV PRN (14:15)
[2020-04-24] MEDS ORDERED: SODIUM CHLORIDE 0.9% 1,000 ML IV SCH (14:15)
[2020-04-24] MEDS ORDERED: ACETAMINOPHEN 325 MG TABLET PO PRN (14:15)
[2020-04-24] MEDS: DOCUSATE SODIUM 100 MG CAPSULE PO SCH ×2 (17:31→20:40)
[2020-04-24] MEDS: PANTOPRAZOLE 40 MG TABLET PO SCH (17:31)
[2020-04-24] MEDS ORDERED: SIMVASTATIN 20 MG TABLET PO SCH (21:00)
[2020-04-24] MEDS: APIXABAN 2.5 MG TABLET PO SCH (21:08)
[2020-04-25 07:01] LABS: Basophils % 0.1 % (0.0-0.8); Eosinophils % 0.1 % (0.00-10.9); Hematocrit 44.6 VOL% (42.0-52.0); Hemoglobin 14.9 GM/DL (14.0-18.0); Immature Granulocytes % 0.4 %; Immature Granulocytes Absolute 0.05 #; Lymphocytes # 1.8 10*3/uL (1.4-4.0); Lymphocytes % 12.8 % (21.2-54.2); Mean Corpuscular HGB Conc 33.4 GM/DL (32-36); Mean Corpuscular Volume 97.8 FL (87-102); Mean Platelet Volume 9.6 FL (9.6-12.0); Monocytes % 6.8 % (1.7-12.7); Neutrophils % 79.8 % (38.7-73.9); Platelet Count 238 T/CUMM (130-400); Red Blood Count 4.56 MC/CUMM (3.8-5.5); Red Cell Distribution Width 12.6 % (9.3-17.3); White Blood Count 14.2 T/CUMM (4-12)
[2020-04-25 07:16] LABS: Calcium 9.6 MG/DL (8.5-10.1); Osmolality,Calculated 285.3 MOS/KG (273-304); Potassium 3.8 MMOL/L (3.5-5.1)
[2020-04-25] MEDS ORDERED: FUROSEMIDE 40 MG TABLET PO SCH (08:00)
[2020-04-25] MEDS ORDERED: METOPROLOL SUCCINATE XL 25 MG TABLET PO SCH (09:00)
[2020-04-25] MEDS ORDERED: DOCUSATE SODIUM 100 MG CAPSULE PO SCH (09:00)
[2020-04-25] MEDS ORDERED: ASPIRIN EC 81 MG TABLET PO SCH (09:00)
[2020-04-25] MEDS ORDERED: POTASSIUM CHLORIDE 20 MEQ TABLET PO SCH (09:00)
[2020-04-25] MEDS: APIXABAN 2.5 MG TABLET PO SCH (09:22)
[2020-04-25] MEDS: PANTOPRAZOLE 40 MG TABLET PO SCH (09:22)
[2020-04-25 11:46] VITALS: BP 144/83
== END 2020-04-25 13:10 | disposition home health service (06) ==
LOC: N.EDINP 04:07 → N.ED 04:07 → N.EDINP 15:40 → N.5E 16:28
PROVIDERS: ADMIT Internal Medicine; ATTEND Internal Medicine

== ENCOUNTER 2020-06-09 15:50 | Inpatient (IN) ==
[2020-06-09] MEDS ORDERED: PANTOPRAZOLE 40 MG VIAL IV STA (18:23)
[2020-06-09 18:31] LABS: Basophils % 0.6 % (0.0-0.8); Eosinophils # 0.2 10*3/uL (0.0-0.87); Eosinophils % 2.8 % (0.00-10.9); Hematocrit 37.1 VOL% (42.0-52.0); Hemoglobin 12.1 GM/DL (14.0-18.0); Immature Granulocytes % 0.4 %; Immature Granulocytes Absolute 0.03 #; Lymphocytes # 1.8 10*3/uL (1.4-4.0); Mean Corpuscular HGB Conc 32.6 GM/DL (32-36); Mean Corpuscular Volume 99.7 FL (87-102); Mean Platelet Volume 9.2 FL (9.6-12.0); Monocytes % 11.2 % (1.7-12.7); Platelet Count 207 T/CUMM (130-400); Red Blood Count 3.72 MC/CUMM (3.8-5.5); Red Cell Distribution Width 13.2 % (9.3-17.3); White Blood Count 6.7 T/CUMM (4-12)
[2020-06-09 18:46] LABS: PT Patient Result 10.3 SECS (9.8-11.9); Partial Thromboplastin Time 27.3 SECS (23.9-33.8)
[2020-06-09 18:51] LABS: Alanine Aminotransferase 18 U/L (16-61); Albumin 3.1 G/DL (3.4-5.0); Alkaline Phosphatase 81 U/L (45-117); Aspartate Amino Transferase 20 U/L (0-37); Bilirubin,Total < 0.39 MG/DL (0.2-1.0); Blood Urea Nitrogen 23 MG/DL (7-18); Carbon Dioxide 28 MMOL/L (21-32); Estimated Glom Filtration Rate 65 ML/MIN; Glucose 102 MG/DL (74-106); Osmolality,Calculated 284.3 MOS/KG (273-304); Potassium 4.2 MMOL/L (3.5-5.1); Sodium 141 MMOL/L (136-145); Total Protein 6.7 G/DL (6.4-8.2)
[2020-06-09] MEDS ORDERED: ONDANSETRON 4 MG/2 ML VIAL IV PRN (20:57)
[2020-06-09 21:19] LABS: Basophils % 0.6 % (0.0-0.8); Eosinophils # 0.2 10*3/uL (0.0-0.87); Eosinophils % 2.8 % (0.00-10.9); Hematocrit 34.4 VOL% (42.0-52.0); Hemoglobin 11.2 GM/DL (14.0-18.0); Immature Granulocytes % 0.3 %; Immature Granulocytes Absolute 0.02 #; Lymphocytes # 1.7 10*3/uL (1.4-4.0); Lymphocytes % 26.1 % (21.2-54.2); Mean Corpuscular HGB Conc 32.6 GM/DL (32-36); Mean Platelet Volume 9.2 FL (9.6-12.0); Monocytes % 9.3 % (1.7-12.7); Neutrophils % 60.9 % (38.7-73.9); Platelet Count 195 T/CUMM (130-400); Red Blood Count 3.44 MC/CUMM (3.8-5.5); Red Cell Distribution Width 13.3 % (9.3-17.3); White Blood Count 6.4 T/CUMM (4-12)
[2020-06-09] MEDS: SODIUM CHLORIDE 0.9% 1,000 ML IV SCH (23:38)
[2020-06-10 01:38] LABS: Basophils % 0.5 % (0.0-0.8); Eosinophils # 0.2 10*3/uL (0.0-0.87); Eosinophils % 3.5 % (0.00-10.9); Hematocrit 31.3 VOL% (42.0-52.0); Hemoglobin 10.2 GM/DL (14.0-18.0); Immature Granulocytes % 0.2 %; Immature Granulocytes Absolute 0.01 #; Lymphocytes # 1.8 10*3/uL (1.4-4.0); Lymphocytes % 30.4 % (21.2-54.2); Mean Corpuscular HGB Conc 32.6 GM/DL (32-36); Monocytes % 10.7 % (1.7-12.7); Neutrophils % 54.7 % (38.7-73.9); Platelet Count 176 T/CUMM (130-400); Red Blood Count 3.13 MC/CUMM (3.8-5.5); Red Cell Distribution Width 13.3 % (9.3-17.3)
[2020-06-10 01:59] LABS: Albumin 2.6 G/DL (3.4-5.0); Bilirubin,Total 0.4 MG/DL (0.2-1.0); Calcium 8.6 MG/DL (8.5-10.1); Osmolality,Calculated 292.7 MOS/KG (273-304); Potassium 3.8 MMOL/L (3.5-5.1); Total Protein 5.5 G/DL (6.4-8.2)
[2020-06-10 02:58] LABS: Eosinophils 5 % (0-10); Hypochromasia 1+; Lymphocytes 34 % (20-55); Segmented Neutrophils 56 % (50-85); Total Cells Counted 100
[2020-06-10 02:59] LABS: Platelet Estimate Decreased
[2020-06-10 06:24] LABS: Basophils % 0.7 % (0.0-0.8); Eosinophils # 0.2 10*3/uL (0.0-0.87); Eosinophils % 3.1 % (0.00-10.9); Hematocrit 31.9 VOL% (42.0-52.0); Hemoglobin 10.5 GM/DL (14.0-18.0); Immature Granulocytes % 0.3 %; Immature Granulocytes Absolute 0.02 #; Lymphocytes # 1.6 10*3/uL (1.4-4.0); Lymphocytes % 27.9 % (21.2-54.2); Mean Corpuscular HGB Conc 32.9 GM/DL (32-36); Mean Corpuscular Volume 99.7 FL (87-102); Mean Platelet Volume 9.4 FL (9.6-12.0); Monocytes % 10.8 % (1.7-12.7); Neutrophils % 57.2 % (38.7-73.9); Platelet Count 181 T/CUMM (130-400); Red Cell Distribution Width 13.2 % (9.3-17.3); White Blood Count 5.7 T/CUMM (4-12)
[2020-06-10] MEDS: SODIUM CHLORIDE 0.9% 1,000 ML IV SCH ×3 (07:05→23:10)
[2020-06-10] MEDS: METOPROLOL SUCCINATE XL 25 MG TABLET PO SCH (09:01)
[2020-06-10] MEDS: POTASSIUM CHLORIDE 20 MEQ TABLET PO SCH (09:01)
[2020-06-10] MEDS: FUROSEMIDE 40 MG TABLET PO SCH ×2 (09:01→16:43)
[2020-06-10] MEDS: DOCUSATE SODIUM 100 MG CAPSULE PO SCH (09:01)
[2020-06-10] MEDS: PANTOPRAZOLE 40 MG VIAL IV SCH (09:09)
[2020-06-10 15:07] LABS: Basophils % 0.7 % (0.0-0.8); Eosinophils # 0.2 10*3/uL (0.0-0.87); Eosinophils % 3.4 % (0.00-10.9); Hemoglobin 10.2 GM/DL (14.0-18.0); Immature Granulocytes % 0.4 %; Immature Granulocytes Absolute 0.02 #; Lymphocytes # 1.4 10*3/uL (1.4-4.0); Mean Corpuscular HGB Conc 32.9 GM/DL (32-36); Mean Corpuscular Volume 100.3 FL (87-102); Monocytes % 11.2 % (1.7-12.7); Neutrophils % 58.3 % (38.7-73.9); Platelet Count 171 T/CUMM (130-400); Red Blood Count 3.09 MC/CUMM (3.8-5.5); Red Cell Distribution Width 13.7 % (9.3-17.3); White Blood Count 5.4 T/CUMM (4-12)
[2020-06-10] MEDS: SIMVASTATIN 40 MG TABLET PO SCH (21:25)
[2020-06-11] MEDS: SODIUM CHLORIDE 0.9% 1,000 ML IV SCH ×4 (01:49→21:34)
[2020-06-11 05:26] LABS: Basophils # 0.1 10*3/uL (0.0-0.2); Basophils % 0.8 % (0.0-0.8); Eosinophils # 0.3 10*3/uL (0.0-0.87); Hematocrit 31.1 VOL% (42.0-52.0); Hemoglobin 10.2 GM/DL (14.0-18.0); Immature Granulocytes % 0.3 %; Immature Granulocytes Absolute 0.02 #; Lymphocytes # 1.7 10*3/uL (1.4-4.0); Lymphocytes % 27.4 % (21.2-54.2); Mean Corpuscular HGB Conc 32.8 GM/DL (32-36); Mean Platelet Volume 9.8 FL (9.6-12.0); Monocytes % 10.6 % (1.7-12.7); Neutrophils % 56.9 % (38.7-73.9); Platelet Count 185 T/CUMM (130-400); Red Blood Count 3.11 MC/CUMM (3.8-5.5); Red Cell Distribution Width 13.5 % (9.3-17.3); White Blood Count 6.3 T/CUMM (4-12)
[2020-06-11] MEDS: PANTOPRAZOLE 40 MG VIAL IV SCH (09:51)
[2020-06-11] MEDS: DOCUSATE SODIUM 100 MG CAPSULE PO SCH (09:52)
[2020-06-11] MEDS: FUROSEMIDE 40 MG TABLET PO SCH ×2 (09:52→15:53)
[2020-06-11] MEDS: METOPROLOL SUCCINATE XL 25 MG TABLET PO SCH (09:52)
[2020-06-11] MEDS: POTASSIUM CHLORIDE 20 MEQ TABLET PO SCH (09:52)
[2020-06-11] MEDS: lisinopriL 10 MG TABLET PO SCH (09:52)
[2020-06-11] MEDS: ACETAMINOPHEN 325 MG TABLET PO PRN (09:52)
[2020-06-11] MEDS: HYDROCORTISONE 2.5% RECTAL CREAM 30 GM TUBE TOP SCH ×2 (15:53→22:11)
[2020-06-11] MEDS: SIMVASTATIN 40 MG TABLET PO SCH (21:35)
[2020-06-12] MEDS: SODIUM CHLORIDE 0.9% 1,000 ML IV SCH ×2 (03:00→21:14)
[2020-06-12] MEDS: lisinopriL 10 MG TABLET PO SCH (08:35)
[2020-06-12] MEDS: DOCUSATE SODIUM 100 MG CAPSULE PO SCH (08:35)
[2020-06-12] MEDS: POTASSIUM CHLORIDE 20 MEQ TABLET PO SCH (08:35)
[2020-06-12] MEDS: METOPROLOL SUCCINATE XL 25 MG TABLET PO SCH (08:35)
[2020-06-12] MEDS: FUROSEMIDE 40 MG TABLET PO SCH ×2 (08:36→16:10)
[2020-06-12] MEDS: FERROUS SULFATE 325 MG TABLET PO SCH (08:36)
[2020-06-12] MEDS: HYDROCORTISONE 2.5% RECTAL CREAM 30 GM TUBE TOP SCH ×3 (08:38→22:13)
[2020-06-12] MEDS: PANTOPRAZOLE 40 MG VIAL IV SCH (08:39)
[2020-06-12 08:56] LABS: Basophils % 0.8 % (0.0-0.8); Eosinophils # 0.2 10*3/uL (0.0-0.87); Eosinophils % 4.2 % (0.00-10.9); Hematocrit 31.4 VOL% (42.0-52.0); Hemoglobin 10.2 GM/DL (14.0-18.0); Immature Granulocytes % 0.4 %; Immature Granulocytes Absolute 0.02 #; Lymphocytes # 1.3 10*3/uL (1.4-4.0); Lymphocytes % 25.9 % (21.2-54.2); Mean Corpuscular HGB Conc 32.5 GM/DL (32-36); Mean Corpuscular Volume 101.3 FL (87-102); Mean Platelet Volume 9.2 FL (9.6-12.0); Monocytes % 8.8 % (1.7-12.7); Neutrophils % 59.9 % (38.7-73.9); Platelet Count 181 T/CUMM (130-400); Red Cell Distribution Width 13.6 % (9.3-17.3)
[2020-06-12] MEDS: SIMVASTATIN 40 MG TABLET PO SCH (21:13)
[2020-06-13] MEDS: ACETAMINOPHEN 325 MG TABLET PO PRN (01:35)
[2020-06-13] MEDS: SODIUM CHLORIDE 0.9% 1,000 ML IV SCH (02:48)
[2020-06-13 08:14] LABS: Hematocrit 30.7 VOL% (42.0-52.0); Hemoglobin 10.1 GM/DL (14.0-18.0)
[2020-06-13] MEDS: METOPROLOL SUCCINATE XL 25 MG TABLET PO SCH (10:09)
[2020-06-13] MEDS: POTASSIUM CHLORIDE 20 MEQ TABLET PO SCH (10:09)
[2020-06-13] MEDS: lisinopriL 10 MG TABLET PO SCH (10:09)
[2020-06-13] MEDS: DOCUSATE SODIUM 100 MG CAPSULE PO SCH (10:09)
[2020-06-13] MEDS: FUROSEMIDE 40 MG TABLET PO SCH (10:09)
[2020-06-13] MEDS: FERROUS SULFATE 325 MG TABLET PO SCH (10:10)
[2020-06-13] MEDS: PANTOPRAZOLE 40 MG VIAL IV SCH (10:11)
[2020-06-13] MEDS: HYDROCORTISONE 2.5% RECTAL CREAM 30 GM TUBE TOP SCH (10:13)
[2020-06-13 11:30] VITALS: BP 157/77
== END 2020-06-13 10:55 | disposition home or self-care (01) | DRG 813 ==
LOC: N.EDINP 15:50 → N.ED 15:50 → N.EDINP 23:57 → N.4E 06-10 01:21
PROVIDERS: ADMIT Internal Medicine; ATTEND Internal Medicine